=== PATIENT | male | born 1945 | race Caucasian/White ===

== ENCOUNTER → 2024-12-19 | Outpatient (CLI) | payer MEDICARE, MEDICAID, SELFPAY ==
--- NOTE | 2024-12-19 10:00 | XR_ITS ---
Examination: Abdomen sonogram, complete Date and time of exam: December 19, 2024 1009 hrs. Indications: Right flank pain beginning 4 months ago. Technique: Multiple real-time grayscale transabdominal sonographic images of the abdomen have been obtained. Findings: Normal gallbladder. Normal common bile duct 0.3 cm Pancreatic head 3.1 cm. Aorta not enlarged Liver 17.9 cm irregular contour. Normal hepatopedal portal venous flow Patent IVC Right kidney 10.7 cm in the cortex 0.9 cm 17 mm lower pole cyst Minimal hydronephrosis Left kidney 11.7 cm 42.7 cm 5 mm lower pole calculus Moderate bilateral renal parenchymal scar formation Spleen 9.6 cm Impression: Hepatomegaly, primary hepatocellular disease Minimal right hydronephrosis 5 mm lower pole left renal calculus
== END | disposition home or self-care (01) ==
PROVIDERS: PCP Family Medicine; Referring Provider Family Medicine; Visit Provider Family Medicine
DX: R16.0 Hepatomegaly, not elsewhere classified (principal); N13.30 Unspecified hydronephrosis; N20.0 Calculus of kidney
CPT/HCPCS: 76700